=== PATIENT | male | born 1995 | race Hispanic/Latino ===

== ENCOUNTER 2016-08-16 08:00 | Day surgery (SDC) | payer OTHER ==
[~2016-08-16] VITALS: Ht 177.8 cm; Wt 69.0 kg
[~2016-08-16 08:00] MED LIST: 0.9% Sodium Chloride 1,000 ML IV SCH; HYDR2TAB28 PO; OMEP20TA86 PO; Sodium Chloride LOK Flush 10 mL Syringe IV PRN; fentaNYL-PF 50 mCg/mL 2 mL Inj IVPUSH PRN
[2016-08-16 08:18] VITALS: BP 123/74; PULSE 66; RESP 14; O2SAT 98
[2016-08-16 09:02] VITALS: BP 126/68; PULSE 78; RESP 14; O2SAT 98
[2016-08-16 09:21] VITALS: BP 104/57; PULSE 58; RESP 14; O2SAT 98
[2016-08-16 09:22] VITALS: BP 101/57; PULSE 57; RESP 12; O2SAT 98
--- NOTE | 2016-08-16 10:07 | ENDO ---
[address] [address] ENDOSCOPY PROCEDURE PATIENT: RADHA LUNDY : 1995 MR#: [id number] ADMIT: 08/16/2016 JOB ID: [id number] DATE: 08/16/2016 PROCEDURE: Esophagogastroduodenoscopy. INDICATIONS: Gastroesophageal reflux. The patient's ASA classification is 1. Mallampati score was 1. MEDICATIONS: 1. Versed 6 mg. 2. Fentanyl 125 mcg. INSTRUMENT USED: GIF H 190. PROCEDURE DETAILS: After informed consent was obtained, the patient was brought into the GI suite, where he was placed on oxygen via nasal cannula and monitored with continuous pulse oximeter, telemetry and blood pressure monitoring. A time-out was performed. Then, he was placed in the left lateral decubitus position and medications were administered for sedation. A bite block was placed. The standard EGD scope was inserted through the bite block and advanced under direct visualization to the second portion of the duodenum without difficulty. FINDINGS: 1. Normal appearing duodenal bulb, first and second portion. 2. Normal-appearing pylorus. In the antrum and body of the stomach, there was erythema suggestive of gastritis. Multiple random biopsies were obtained. 3. There was a minimal amount of food debris remaining in the proximal gastric body. We were unable to completely suction this as it was partially solid. Retroflexed views in the gastric body revealed a normal-appearing cardia and fundus. 4. Normal appearing GE junction with a regular Z-line. 5. Normal appearing esophagus. 6. Mild gastritis and small amount of retained food in the stomach. IMPRESSION: Gastritis, possible gastroparesis. RECOMMENDATIONS: 1. Stop marijuana use. If symptoms do not improve, then gastric emptying study to further evaluate. 2. Continue PPI daily. 3. Followup in GI clinic. COMPLICATIONS: None. ESTIMATED BLOOD LOSS: Less than 5 mL.
--- NOTE | 2016-08-17 13:59 | PATH ---
SURGICAL PATHOLOGY Attending Physician:Martinez Barber CASE STATUS: Signed Out PATIENT NAME: RADHA LUNDY PID: [id number] : 1995 DATE COLLECTED:08/16/2016 15:56 SPECIMEN: Gastric, Biopsy CLINICAL HISTORY: [id number] 1. RANDOM GASTRIC FINAL DIAGNOSIS: 1.RANDOM GASTRIC BIOPSIES: FRAGMENTS OF FUNDIC AND ANTRAL MUCOSA, NEGATIVE FOR SIGNIFICANT INFLAMMATION. Negative for evidence of Helicobacter. Negative for dysplasia and malignancy. ICD10 code R10.9 GROSS DESCRIPTION: The specimen is received in one formalin filled container labeled with the patient's name, sublabeled "random gastric" and consists of 2 portions of tissue which aggregate to 0.4 x 0.3 x 0.2 CM. The specimen is entirely submitted in one cassette. 08/16/2016 [facility] MICRO DESCRIPTION: See diagnosis. ICD-9 CODES: CPT CODES: 1: 39908 Electronically Signed Out Reinaldo Turner MD [facility] [address], [place] [address] Technical component performed at [facility], [address], [place], [address]
== END 2016-08-16 23:59 | disposition home or self-care (01) ==
LOC: END 08:00
PROVIDERS: ATTEND Internal Medicine Gastroenterology
DX: K29.70 Gastritis, unspecified, without bleeding (principal); K21.9 Gastro-esophageal reflux disease without esophagitis; F12.90 Cannabis use, unspecified, uncomplicated
CPT/HCPCS: 43239; 88305; G0500; J7030